=== PATIENT | male | born 1985 | race Caucasian/White ===

== ENCOUNTER 2017-12-22 08:30 | Emergency (ER) | payer OTHER ==
[2017-12-22 08:39] VITALS: BP 149/85
--- NOTE | 2017-12-22 08:58 | ED Physician Documentation ---
PD HPI LOWER EXT INJURY - Stated complaint Stated Complaint: R LEG INJ - Chief complaint Chief Complaint: General - History obtained from History obtained from: Patient - History of Present Illness PD HPI LOW EXT INJURY LOCATION: Right, Upper leg Type of injury: Other (Sprinting) Where [place] occurred[place] Timing - onset: Last night Timing - details: Abrupt onset Worsened by: Moving, Palpating Associated symptoms: No: Weakness, Numbness, Swelling Similar symptoms before: Has not had sx before - Additional information Additional information: The patient is a 32-year-old male who was playing softball last night, sprinting first base, when he felt sudden pain in his right thigh in the hamstring area. He has had persistent pain since that time, impairing his ability to ambulate. He denies any other injury. He denies history of similar symptoms in the past. He is requesting an MRI to determine whether there is a complete tear of the hamstring. Review of Systems Constitutional: denies: Fever Respiratory: denies: Dyspnea Skin: denies: Rash Musculoskeletal: reports: Extremity pain (right posterior thigh). denies: Extremity swelling Neurologic: denies: Focal weakness, Numbness PD PAST MEDICAL HISTORY - Past Medical History Endocrine/Autoimmune: None Musculoskeletal: None - Allergies Allergies/Adverse Reactions: Allergies Allergy/AdvReac Type Severity Reaction Status Date / Time No Known Drug Allergies Allergy Verified 12/22/17 08:39 PD ED PE NORMAL - Vitals Vital signs reviewed: Yes (borderline hypertension initially.) - General General: Alert and oriented X 3, Well developed/nourished, Other (Athletic physique.) - HEENT HEENT: Atraumatic - Respiratory Respiratory: No respiratory distress - Derm Derm: No rash - Extremities Extremities: No deformity, No edema, No calf tenderness / cord, Other (There is tenderness to palpation of the postero-lateral thigh, in the hamstring region. There is no ecchymosis or break in the integument. The patient is able to fully extend his knee and is able to passively flex his knee to 90. Distal neurovascular is intact.) - Neuro Neuro: Alert and oriented X 3, No motor deficit, No sensory deficit Results - Vitals Vitals: Oxygen O2 Source Room air PD MEDICAL DECISION MAKING - ED course Complexity details: considered differential, d/w patient ED course: The patient's presentation is most consistent with a right hamstring strain versus tear. I performed a bedside ultrasound examination of the posterior thigh, and found no evidence of fluid collection that would suggest hematoma. Treatment in the emergency department included application of a knee immobilizer. I discussed with him the expected course of injury, symptomatic treatment and outpatient follow-up, as well as potentially worrisome signs or symptoms that should prompt reevaluation in the emergency department. I discussed with him that he could follow-up with his primary physician regarding the possibility of an outpatient MRI, but that there was no clinical indication for an emergent MRI to be performed. - Sepsis Event Vital Signs: Oxygen O2 Source Room air Departure - Departure Disposition: Home, Self Care Clinical Impression: Pulled hamstring Qualifiers: Encounter type: initial encounter Laterality: right Qualified Code(s): S76.311A - Strain of muscle, fascia and tendon of the posterior muscle group at thigh level, right thigh, initial encounter Condition: Stable Instructions: ED Strain Muscle Ext Follow-Up: Rashad Diaz MD [Primary Care Provider] - Comments: Keep your right leg elevated as much of the time as possible. You can use ibuprofen, up to 800 mg 3 times daily for its anti-inflammatory effect. Use the knee immobilizer if it provides comfort. Follow up with your primary physician within 1 week. Consider MRI if pain persists. Return to the emergency department if you develop markedly increasing pain, swelling, or otherwise worsening symptoms. Forms: Activity restrictions Discharge Date/Time: 12/22/17 09:35
== END 2017-12-22 09:35 | disposition home or self-care (01) ==
LOC: ED 08:30
DX: S76.311A Strain of muscle, fascia and tendon of the posterior muscle group at thigh level, right thigh, initial encounter (principal); X50.9XXA Other and unspecified overexertion or strenuous movements or postures, initial encounter; Y93.64 Activity, baseball; Y92.320 Baseball field as the place of occurrence of the external cause
CPT/HCPCS: 29530; 99282; 99283